=== PATIENT | male | born 1970 | race Caucasian/White ===

== ENCOUNTER → 2019-11-22 09:32 | Outpatient (CLI) | payer OTHER, SELFPAY ==
--- NOTE | 2019-11-22 | DI.US.S_ITS ---
PROCEDURE: US ABDOMEN COMPLETE INDICATIONS: ESSENTIAL (PRIMARY) HYPERTENSION, HYPERLIPIDEMIA TECHNIQUE: Real-time scanning was performed of the abdominal and retroperitoneal organs, with image documentation. COMPARISON: None. FINDINGS: Liver: Liver is normal in size and homogeneous in echotexture. Appropriate direction of flow in the portal vein. Gallbladder: The gallbladder is filled with echogenic and shadowing material, presumably stone close to the fundus. The wall is difficult to distinguish and may be slightly thickened measuring up to 4 mm. There is no sonographic Cheatham sign. Biliary ducts: Intrahepatic bile ducts are non-dilated. Extrahepatic bile duct caliber measures two mm. Normal is 6-7 mm or less in diameter, or 10 mm or less post-cholecystectomy. Pancreas: The pancreas was not well seen. Spleen: Spleen is normal in size and homogeneous in echotexture. Kidneys: Kidneys are normal in size and echotexture. Right kidney measures 12.3 cm long; left kidney measures 12.7 cm long. No nephrolithiasis. No solid masses. There is a large parapelvic cyst in the upper pole right kidney measuring 6.8 x 6.1 x 6.9 cm. Questionable left collecting system prominence. No hydroureter visible. Aorta: Visualized aorta is normal in caliber at less than 3 cm. Iliacs: Proximal common iliac arteries are normal in caliber at less than 2.5 cm. IVC: Intrahepatic inferior vena cava is patent. Miscellaneous: No free abdominal fluid. IMPRESSION: 1. Echogenic and shadowing material filled the gallbladder which appears distended with questionable wall thickening. There is likely cholelithiasis and sludge present. These may be findings of chronic cholecystitis. Nuclear medicine HIDA scan may be useful to determine gallbladder function. No clear indication of acute cholecystitis. 2. Questionable left intrarenal collecting system prominence. Correlate clinically and consider CT KUB if further imaging is needed. 3. Nonvisualization of the pancreas due to lack of good acoustic window. Dictated by: Sharon Carranza M.D. on 11/22/2019 at 14:52 Approved by: Sharon Carranza M.D. on 11/22/2019 at 14:57
== END ==
PROVIDERS: PCP Family Medicine; Referring Provider Family Medicine; Visit Provider Family Medicine
DX: N28.1 Cyst of kidney, acquired (principal); I10 Essential (primary) hypertension; E78.5 Hyperlipidemia, unspecified
CPT/HCPCS: 76700

== ENCOUNTER → 2021-02-11 09:02 | Outpatient (CLI) | payer OTHER, SELFPAY ==
[2021-02-11 19:20] LABS: Add Manual Diff / Slide Review NO; Basophils Absolute Auto 0 /uL (0-100); Basophils Percent Auto 0.7 % (0-2); Eosinophils Absolute Auto 100 /uL (0-450); Eosinophils Percent Auto 2.4 % (2-4); Hematocrit 43.2 % (41-53); Lymphocytes Absolute Auto 1200 /uL (1100-4500); Lymphocytes Percent Auto 22.5 % (25-40); Mean Corpuscular HGB Conc 34.7 % (30-36); Mean Corpuscular Volume 86.4 fL (80-100); Monocytes Absolute Auto 500 /uL (0-900); Monocytes Percent Auto 9.8 % (3-14); Neutrophils Absolute Auto 3500 /uL (1500-7000); Neutrophils Percent Auto 64.6 % (50-75); Platelet Count 239 X10^3/uL (150-400); Red Blood Cell Count 5.01 X10^6/uL (4.5-5.9); Red Cell Distribution Width 12.7 % (11.6-14.8); White Blood Cell Count 5.4 X10^3/uL (4.5-11.0)
[2021-02-11 19:23] LABS: Alanine Aminotransferase 28 IU/L (<50); Albumin 4.7 g/dL (3.5-5.0); Albumin Globulin Ratio 1.6 (1.0-2.8); Alkaline Phosphatase 54 U/L (38-126); Aspartate Aminotransferase 31 IU/L (17-59); BUN Creatinine Ratio 15.4 (6-22); Bilirubin Total 1.5 mg/dL (0.2-1.3); Blood Urea Nitrogen 16 mg/dL (9-20); Calcium 10.1 mg/dL (8.4-10.2); Carbon Dioxide 29 mmol/L (22-32); Chloride 102 mmol/L (98-107); Cholesterol 210 mg/dL (140-199); Estimated Glomerular Filt Rate > 60.0 mL/min (>60); Glucose 102 mg/dL (70-100); HDL Cholesterol 54 mg/dL (40-60); HEMOLYSIS 27 (0-50); LDL Cholesterol Calculated 120 mg/dL (<100); Potassium 4.1 mmol/L (3.4-5.1); Sodium 140 mmol/L (137-145); Total Protein 7.7 g/dL (6.3-8.2); Triglycerides 182 mg/dL (35-150)
== END ==
PROVIDERS: PCP Physician Assistant; Visit Provider Physician Assistant
DX: E78.00 Pure hypercholesterolemia, unspecified (principal); I10 Essential (primary) hypertension; Z12.11 Encounter for screening for malignant neoplasm of colon; Z79.899 Other long term (current) drug therapy
CPT/HCPCS: 80053; 80061; 85025

== ENCOUNTER → 2021-09-30 10:37 | Outpatient (CLI) | payer OTHER, SELFPAY ==
[2021-09-30 20:33] LABS: Alanine Aminotransferase 25 IU/L (<50); Albumin 4.6 g/dL (3.5-5.0); Albumin Globulin Ratio 1.6 (1.0-2.8); Alkaline Phosphatase 57 U/L (38-126); Aspartate Aminotransferase 29 IU/L (17-59); BUN Creatinine Ratio 17.7 (6-22); Bilirubin Total 2.1 mg/dL (0.2-1.3); Blood Urea Nitrogen 17 mg/dL (9-20); Calcium 9.5 mg/dL (8.4-10.2); Carbon Dioxide 29 mmol/L (22-32); Chloride 99 mmol/L (98-107); Cholesterol 179 mg/dL (140-199); Estimated Glomerular Filt Rate > 60 mL/min (>60); Globulin 2.9 g/dL (1.7-4.1); Glucose 99 mg/dL (70-100); HDL Cholesterol 58 mg/dL (40-60); HEMOLYSIS < 15 (0-50); LDL Cholesterol Calculated 95 mg/dL (<100); Potassium 3.9 mmol/L (3.4-5.1); Sodium 137 mmol/L (137-145); Total Protein 7.5 g/dL (6.3-8.2); Triglycerides 131 mg/dL (35-150)
== END ==
PROVIDERS: PCP Physician Assistant; Visit Provider Physician Assistant
DX: E78.00 Pure hypercholesterolemia, unspecified (principal); I10 Essential (primary) hypertension; Z79.899 Other long term (current) drug therapy
CPT/HCPCS: 80053; 80061

== ENCOUNTER → 2021-11-04 11:43 | Outpatient (CLI) | payer OTHER, SELFPAY ==
[2021-11-04 20:03] LABS: Bilirubin Direct 0.2 mg/dL (0.0-0.4); Bilirubin Total 1.8 mg/dL (0.2-1.3)
== END ==
PROVIDERS: PCP Physician Assistant; Visit Provider Physician Assistant
DX: E80.6 Other disorders of bilirubin metabolism (principal)
CPT/HCPCS: 82247; 82248

== ENCOUNTER → 2022-07-20 14:24 | Outpatient (CLI) | payer OTHER, SELFPAY ==
[2022-07-20 19:56] LABS: Alanine Aminotransferase 25 IU/L (<50); Albumin 4.4 g/dL (3.5-5.0); Albumin Globulin Ratio 1.5 (1.0-2.8); Alkaline Phosphatase 52 U/L (38-126); Aspartate Aminotransferase 25 IU/L (17-59); BUN Creatinine Ratio 15.7 (6-22); Bilirubin Total 1.4 mg/dL (0.2-1.3); Blood Urea Nitrogen 18 mg/dL (9-20); Calcium 9.9 mg/dL (8.4-10.2); Carbon Dioxide 33 mmol/L (22-32); Chloride 97 mmol/L (98-107); Estimated Glomerular Filt Rate > 60 mL/min (>60); Globulin 2.9 g/dL (1.7-4.1); Glucose 86 mg/dL (70-100); HEMOLYSIS < 15 (0-50); Potassium 3.7 mmol/L (3.4-5.1); Sodium 136 mmol/L (137-145); Total Protein 7.3 g/dL (6.3-8.2)
[2022-07-20 19:57] LABS: Add Manual Diff / Slide Review NO; Basophils Absolute Auto 0 /uL (0-100); Basophils Percent Auto 0.7 % (0-2); Eosinophils Absolute Auto 100 /uL (0-450); Eosinophils Percent Auto 1.7 % (2-4); Hematocrit 42.3 % (41-53); Hemoglobin 14.9 g/dL (13.5-17.5); Lymphocytes Absolute Auto 1400 /uL (1100-4500); Lymphocytes Percent Auto 29.1 % (25-40); Mean Corpuscular HGB Conc 35.3 % (30-36); Mean Corpuscular Hemoglobin 29.9 PG (26-34); Mean Corpuscular Volume 84.8 fL (80-100); Monocytes Absolute Auto 600 /uL (0-900); Monocytes Percent Auto 12.2 % (3-14); Neutrophils Absolute Auto 2800 /uL (1500-7000); Neutrophils Percent Auto 56.3 % (50-75); Platelet Count 262 X10^3/uL (150-400); Red Blood Cell Count 4.99 X10^6/uL (4.5-5.9); Red Cell Distribution Width 12.9 % (11.6-14.8); White Blood Cell Count 4.9 X10^3/uL (4.5-11.0)
[2022-07-20 20:45] LABS: Erythrocyte Sedimentation Rate 3 MM/HR (0-15)
== END ==
PROVIDERS: PCP Physician Assistant; Visit Provider Physician Assistant
DX: E78.00 Pure hypercholesterolemia, unspecified (principal); E80.6 Other disorders of bilirubin metabolism; I10 Essential (primary) hypertension; Z79.899 Other long term (current) drug therapy; R51.9 Headache, unspecified
CPT/HCPCS: 80053; 85025; 85651

== ENCOUNTER → 2022-07-27 09:39 | Outpatient (CLI) | payer OTHER, SELFPAY ==
[2022-07-27 20:29] LABS: C-Reactive Protein Quant 0.6 mg/dL (<1.0)
== END ==
PROVIDERS: PCP Physician Assistant; Visit Provider Physician Assistant
DX: R51.9 Headache, unspecified (principal)
CPT/HCPCS: 86140

== ENCOUNTER → 2022-07-31 12:33 | Outpatient (CLI) | payer OTHER, SELFPAY ==
--- NOTE | 2022-07-31 12:34 | DI.CT.S_ITS ---
PROCEDURE: CT HEAD/BRAIN WO CON INDICATIONS: left temporal pain; new headache; and right forehead mass TECHNIQUE: Noncontrast 4.5 mm thick angled axial sections acquired from the foramen magnum to the vertex, with coronal and sagittal reformats. For radiation dose reduction, the following was used: automated exposure control, adjustment of mA and/or kV according to patient size. COMPARISON: None. FINDINGS: Image quality: Excellent. CSF spaces: Basal cisterns are patent. No extra-axial fluid collections. Ventricles are normal in size and shape. Brain: No midline shift. No intracranial masses or hemorrhage. Dickerson-white matter interface is normal. Skull and face: Calvarium and visualized facial bones are intact, without suspicious lesions. Sinuses: Visualized sinuses and mastoids are clear. IMPRESSION: No acute intracranial abnormality. Dictated by: Darnell Garcia M.D. on 07/31/2022 at 12:10 Approved by: Darnell Garcia M.D. on 07/31/2022 at 12:11
--- NOTE | 2022-07-31 12:34 | DI.CT.S_ITS ---
PROCEDURE: CT FACIAL BONES WO CON INDICATIONS: left temporal pain and right foread mass TECHNIQUE: Noncontrast 2.5 mm thick axial images acquired from the mandible through the frontal sinuses, with coronal and sagittal reformatting. For radiation dose reduction, the following was used: automated exposure control, adjustment of mA and/or kV according to patient size. COMPARISON: None. FINDINGS: Image quality: Excellent. Bones and teeth: Orbital riley are intact. Sinus riley show no fracture or deformity. Nasal bones and septum are intact. Visualized portions of the mandible demonstrate no fractures or subluxation. Zygomatic arches are intact. Pterygoid plates are intact. Visualized portions of the skull base and auditory canals are intact. Sinuses: Paranasal sinuses are aerated, without fluid levels, mucosal thickening, or mucoceles. Mastoid air cells are aerated. Soft tissues: There is a well-circumscribed region of fat density at the anterior aspect of the right frontal bone measuring 15 mm. No edema nor fluid collections. No enlarged lymph nodes. No soft tissue lacerations or debris. Vascular: Visualized vascular structures appear normal in the absence of contrast. Bony vascular foramina and canals are intact. IMPRESSION: 1. Right frontal lipoma. 2. No acute fracture. No osseous lesion. If symptoms and/or clinical suspicion for pathology persist, further assessment with MRI or bone scan may be helpful for further assessment. Dictated by: Darnell Garcia M.D. on 07/31/2022 at 12:11 Approved by: Darnell Garcia M.D. on 07/31/2022 at 12:12
== END ==
PROVIDERS: PCP Physician Assistant; Referring Provider Physician Assistant; Visit Provider Physician Assistant
DX: R22.0 Localized swelling, mass and lump, head (principal); G44.52 New daily persistent headache (NDPH); D17.0 Benign lipomatous neoplasm of skin and subcutaneous tissue of head, face and neck
CPT/HCPCS: 70450; 70486

== ENCOUNTER → 2022-08-25 13:04 | Outpatient (CLI) | payer OTHER, SELFPAY ==
[2022-08-25 20:03] LABS: BUN Creatinine Ratio 17.4 (6-22); Blood Urea Nitrogen 19 mg/dL (9-20); C-Reactive Protein Quant < 0.5 mg/dL (<1.0); Calcium 9.7 mg/dL (8.4-10.2); Carbon Dioxide 33 mmol/L (22-32); Chloride 97 mmol/L (98-107); Estimated Glomerular Filt Rate > 60 mL/min (>60); Glucose 77 mg/dL (70-100); HEMOLYSIS < 15 (0-50); Potassium 3.8 mmol/L (3.4-5.1); Sodium 136 mmol/L (137-145)
[2022-08-25 21:20] LABS: Erythrocyte Sedimentation Rate 4 MM/HR (0-15)
== END ==
PROVIDERS: PCP Physician Assistant; Visit Provider Family Medicine
DX: Z01.812 Encounter for preprocedural laboratory examination (principal); R51.9 Headache, unspecified
CPT/HCPCS: 80048; 85651; 86140

== ENCOUNTER → 2022-08-29 12:33 | Outpatient (CLI) | payer OTHER, SELFPAY ==
--- NOTE | 2022-08-29 12:34 | DI.MRI.S_ITS ---
PROCEDURE: MR ANGIO HEAD WO CON INDICATIONS: left temporal artery pain and tenderness. sudden onset TECHNIQUE: Noncontrast axial 3-D [id number] MR angiogram, with 3-dimensional maximum intensity projection (MIP) reformats of the internal carotid arteries and posterior circulation then performed. COMPARISON: [facility], CT, CT HEAD/BRAIN WO CON, 07/31/2022, 12:39. FINDINGS: Image quality: This examination is limited by involuntary motion artifact. Anterior circulation: Intracranial internal carotid arteries demonstrate normal size and intraluminal flow signal. The flow within the paired anterior cerebral arteries is normal and symmetric. The flow within the middle cerebral arteries is normal and symmetric. The anterior communicating artery is seen. No stenoses, occlusions, or aneurysms. Posterior circulation: Visualized portions of the vertebral arteries demonstrate normal caliber, and join to form a normal appearing basilar artery. The flow within the posterior cerebral arteries is normal and symmetric. No stenoses, occlusions, or aneurysms. IMPRESSION: No significant intracranial arterial abnormality is seen. No aneurysm is seen. Dictated by: Javier Alford M.D. on 08/30/2022 at 14:24 Approved by: Javier Alford M.D. on 08/30/2022 at 14:25
== END ==
PROVIDERS: PCP Family Medicine; Referring Provider Family Medicine; Visit Provider Family Medicine
DX: R51.9 Headache, unspecified (principal)
CPT/HCPCS: 70544

== ENCOUNTER → 2023-08-22 09:22 | Outpatient (CLI) | payer OTHER, SELFPAY ==
[2023-08-22 19:35] LABS: Add Manual Diff / Slide Review NO; Basophils Absolute Auto 0 /uL (0-100); Basophils Percent Auto 0.7 % (0-2); Eosinophils Absolute Auto 100 /uL (0-450); Eosinophils Percent Auto 1.9 % (2-4); Hematocrit 42.8 % (41-53); Hemoglobin 14.9 g/dL (13.5-17.5); Lymphocytes Absolute Auto 1100 /uL (1100-4500); Lymphocytes Percent Auto 21.1 % (25-40); Mean Corpuscular HGB Conc 34.7 % (30-36); Mean Corpuscular Hemoglobin 29.4 PG (26-34); Mean Corpuscular Volume 84.7 fL (80-100); Monocytes Absolute Auto 600 /uL (0-900); Neutrophils Absolute Auto 3300 /uL (1500-7000); Neutrophils Percent Auto 65.3 % (50-75); Platelet Count 255 X10^3/uL (150-400); Red Blood Cell Count 5.05 X10^6/uL (4.5-5.9); White Blood Cell Count 5.1 X10^3/uL (4.5-11.0)
[2023-08-22 19:50] LABS: Alanine Aminotransferase 23 IU/L (<50); Albumin 4.5 g/dL (3.5-5.0); Albumin Globulin Ratio 1.6 (1.0-2.8); Alkaline Phosphatase 57 U/L (38-126); Aspartate Aminotransferase 61 IU/L (17-59); Bilirubin Total 1.5 mg/dL (0.2-1.3); Blood Urea Nitrogen 17 mg/dL (9-20); Calcium 9.9 mg/dL (8.4-10.2); Carbon Dioxide 33 mmol/L (22-32); Chloride 101 mmol/L (98-107); Cholesterol 159 mg/dL (140-199); Estimated Glomerular Filt Rate > 60 mL/min (>60); Globulin 2.8 g/dL (1.7-4.1); Glucose 87 mg/dL (70-100); HDL Cholesterol 61 mg/dL (40-60); HEMOLYSIS 40 (0-50); LDL Cholesterol Calculated 79 mg/dL (<100); Sodium 137 mmol/L (137-145); Total Protein 7.3 g/dL (6.3-8.2); Triglycerides 95 mg/dL (35-150)
== END ==
PROVIDERS: PCP Family Medicine; Visit Provider Family Medicine
DX: I10 Essential (primary) hypertension (principal); E78.00 Pure hypercholesterolemia, unspecified
CPT/HCPCS: 80053; 80061; 85025

== ENCOUNTER 2023-09-29 10:37 | Day surgery (SDC) | payer OTHER, SELFPAY ==
--- NOTE | 2023-09-29 | PATH_ITS ---
[facility] Accession Number: [id number] No. of containers..01 Tissue . 01 Material submitted: . colon - CECUM POLYP . 01 Diagnosis: CECUM POLYP: Tubular adenoma. [facility] 10/03/2023 145 Local . 01 Electronically signed: . Baljit Yun MD, Pathologist NPI- [id number] . 01 Gross description: . Received in formalin with two patient identifiers and cecum polyp, is a single new soft tissue fragment, 0.3 cm in greatest dimension. Submitted in A1. ([id number]) /MRV 10/03/20231457 Local . 01 Pathologist provided ICD-10: D12.0 . 01 CPT . 443287 Specimen Comment: A courtesy copy of this report has been sent to [phone] Performed at: [address] [id number] MD Baljit Yun MD Phone: [phone]
[2023-09-29 11:01] VITALS: BP 142/82; PULSE 89; RESP 16; TEMP 36.6; O2SAT 99
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
--- NOTE | 2023-09-29 12:35 | PM.OP.COLON ---
Operative Date/Time/Diagnoses Date of procedure: 09/29/23 Time of procedure: 12:35 Pre-op diagnosis: Colon cancer screening Post-op diagnosis: same Procedure & Clinicians Study performed: Colonoscopy Same procedure as scheduled: Yes Surgeon: Alejo Thomas Procedure Notes Procedure in detail: Surgeon: Alejo Thomas MD Anesthesia: Tara Trevino CRNA Procedure: The patient was brought to the endoscopy suite, placed in left lateral decubitus position. The patient was connected to monitoring devices. A time-out was performed. Sedation was administered. Once the patient was adequately sedated, a digital rectal exam was performed and was normal. The scope was then inserted and advanced to the cecum where the appendiceal orifice was identified and photographed. The scope was then slowly withdrawn over greater than 6 minutes. The mucosa was thoroughly inspected. No abnormalities were found. The scope was retroflexed in the rectum. No abnormalities were seen. The scope was straightened and removed. The patient was awakened and brought to recovery. Scope withdrawal time: 9 minutes Sedation time: 17 minutes EBL: 0 Findings: Normal colon Post-procedure Recommendations: Colonoscopy in 10 years Disposition: PACU
[2023-09-29 12:38] VITALS: BP 112/74; PULSE 80; RESP 15; TEMP 36.8; O2SAT 97
[2023-09-29 12:43] VITALS: BP 110/78; PULSE 80; RESP 13; TEMP 36.2; O2SAT 98
[2023-09-29 12:47] VITALS: BP 138/78; PULSE 73; RESP 17; O2SAT 97
[2023-09-29 12:50] VITALS: BP 117/82; PULSE 77; RESP 13; TEMP 36.2; O2SAT 98
== END 2023-09-29 13:02 | disposition home or self-care (01) ==
PROVIDERS: PCP Family Medicine; Referring Provider Surgery; Visit Provider Surgery
PROC: 0DJD8ZZ Inspection of Lower Intestinal Tract, Via Natural or Artificial Opening Endoscopic (ICD-10-PCS; CPT 45378; principal; 2023-09-29 11:30)
DX: Z12.11 Encounter for screening for malignant neoplasm of colon (principal); D12.0 Benign neoplasm of cecum
CPT/HCPCS: 45380; J2704

== ENCOUNTER → 2023-11-18 11:11 | Outpatient (CLI) | payer OTHER, SELFPAY ==
--- NOTE | 2023-11-18 11:11 | DI.US.S_ITS ---
PROCEDURE: US ABDOMEN COMPLETE INDICATIONS: abnormal GB in 2020, increased bili, and AST TECHNIQUE: Real-time scanning was performed of the abdominal and retroperitoneal organs, with image documentation. COMPARISON: [facility], , US ABDOMEN COMPLETE, 11/22/2019, 10:19. FINDINGS: Liver: Liver is enlarged measuring 18 cm with steatosis. Gallbladder: Gallstones are present. Wall thickness is normal. Biliary ducts: Intrahepatic bile ducts are non-dilated. Extrahepatic bile duct caliber measures 4.6 mm. Normal is 6-7 mm or less in diameter, or 10 mm or less post-cholecystectomy. Pancreas: Visualized portions of the pancreas are sonographically normal. Spleen: Spleen is normal in size and homogeneous in echotexture. Kidneys: Kidneys are normal in size and echotexture. Right kidney measures 13.4 cm long; left kidney measures 11.7 cm long. No hydronephrosis or nephrolithiasis. No solid masses. Bilateral simple cysts are present the largest is on the right measuring 7.5 cm slightly increased from 6.8 cm on prior exam. Aorta: Visualized aorta is normal in caliber at less than 3 cm. Iliacs: Proximal common iliac arteries are normal in caliber at less than 2.5 cm. IVC: Intrahepatic inferior vena cava is patent. Miscellaneous: No free abdominal fluid. IMPRESSION: Bilateral simple renal cysts. Cholelithiasis without wall thickening. Hepatomegaly with steatosis. Dictated by: Maria Esther Smallwood M.D. on 11/18/2023 at 13:40 Approved by: Maria Esther Smallwood M.D. on 11/18/2023 at 13:41
== END ==
PROVIDERS: PCP Family Medicine; Referring Provider Family Medicine; Visit Provider Family Medicine
DX: E80.6 Other disorders of bilirubin metabolism (principal); R74.01 Elevation of levels of liver transaminase levels; R93.2 Abnormal findings on diagnostic imaging of liver and biliary tract; Q61.02 Congenital multiple renal cysts; K80.20 Calculus of gallbladder without cholecystitis without obstruction; R16.0 Hepatomegaly, not elsewhere classified; K76.0 Fatty (change of) liver, not elsewhere classified
CPT/HCPCS: 76700

== ENCOUNTER → 2023-12-26 11:00 | Outpatient (CLI) | payer OTHER, SELFPAY ==
[2023-12-26 19:45] LABS: HEMOLYSIS < 15 (0-50); Iron 155 ug/dL (49-181)
[2023-12-26 19:46] LABS: Alanine Aminotransferase 23 IU/L (<50); Albumin 4.8 g/dL (3.5-5.0); Albumin Globulin Ratio 1.8 (1.0-2.8); Alkaline Phosphatase 52 U/L (38-126); Aspartate Aminotransferase 29 IU/L (17-59); Bilirubin Direct 0.2 mg/dL (0.0-0.4); Bilirubin Total 1.8 mg/dL (0.2-1.3); Bilirubin Unconjugated 1.5 mg/dL (0.0-1.1); Gamma Glutamyl Transpeptidase 20 U/L (15-73); Globulin 2.7 g/dL (1.7-4.1); HEMOLYSIS 16 (0-50); Total Protein 7.5 g/dL (6.3-8.2)
[2023-12-26 19:58] LABS: Percent Iron Saturation 55 % (20-50); Total Iron Binding Capacity 282 ug/dL (261-462); Transferrin 231 mg/dL (206-381)
[2023-12-26 20:20] LABS: Ferritin 383 ng/mL (18-464)
[2023-12-28 00:16] LABS: HBsAg Screen Negative (Negative); Hepatitis A Antibody IgM Negative (Negative); Hepatitis B Core Antibody IgM Negative (Negative); Hepatitis C Antibody Non Reactive (Non Reactive)
[2023-12-28 04:09] LABS: Ceruloplasmin 26.3 mg/dL (16.0-31.0)
[2023-12-28 20:36] LABS: Free Kappa Lt Chains, Serum 9.9 mg/L (3.3-19.4); Free Lambda Lt Chains,Serum 9.8 mg/L (5.7-26.3)
[2023-12-29 15:39] LABS: Albumin 4.3 g/dL (2.9-4.4); Alpha-1-Globulin 0.2 g/dL (0.0-0.4); Alpha-2-Globulin 0.7 g/dL (0.4-1.0); Gamma Globulin 1.1 g/dL (0.4-1.8); Globulin Total 3.1 g/dL (2.2-3.9); Protein, Total 7.4 g/dL (6.0-8.5)
[2023-12-30 10:12] LABS: ANA Screen, IFA Positive (.)
== END ==
PROVIDERS: PCP Family Medicine; Visit Provider Family Medicine
DX: E78.2 Mixed hyperlipidemia (principal); E88.89 Other specified metabolic disorders; R74.01 Elevation of levels of liver transaminase levels; E80.6 Other disorders of bilirubin metabolism; I10 Essential (primary) hypertension
CPT/HCPCS: 80074; 80076; 82248; 82390; 82728; 82977; 83540; 83550; 83883; 84155; 84165; 86038

== ENCOUNTER → 2024-01-10 11:30 | Outpatient (CLI) | payer OTHER, SELFPAY ==
[2024-01-10 19:35] LABS: HEMOLYSIS 16 (0-50); Iron 111 ug/dL (49-181)
[2024-01-10 19:42] LABS: C-Reactive Protein Quant < 0.5 mg/dL (<1.0)
[2024-01-10 19:48] LABS: Percent Iron Saturation 40 % (20-50); Total Iron Binding Capacity 281 ug/dL (261-462); Transferrin 245 mg/dL (206-381)
[2024-01-10 20:11] LABS: Ferritin 291 ng/mL (18-464)
[2024-01-10 20:36] LABS: Erythrocyte Sedimentation Rate 3 MM/HR (0-15)
[2024-01-13 16:08] LABS: Anti Mitochondrial ABY IGG <20.0 Units (0.0-20.0); Smooth Muscle Antibody 6 Units (0-19)
[2024-01-13 22:09] LABS: ANA Screen, IFA Positive (.)
== END ==
PROVIDERS: PCP Family Medicine; Visit Provider Family Medicine
DX: R76.8 Other specified abnormal immunological findings in serum (principal); R79.89 Other specified abnormal findings of blood chemistry; R79.0 Abnormal level of blood mineral; E88.89 Other specified metabolic disorders; R74.01 Elevation of levels of liver transaminase levels; E80.6 Other disorders of bilirubin metabolism; Z12.5 Encounter for screening for malignant neoplasm of prostate; E83.19 Other disorders of iron metabolism
CPT/HCPCS: 81256; 82728; 83516; 83540; 83550; 85651; 86015; 86038; 86140; 86376; G0103

== ENCOUNTER → 2024-03-19 13:37 | Outpatient (CLI) | payer OTHER, SELFPAY ==
[2024-03-19 19:30] LABS: Alanine Aminotransferase 34 IU/L (<50); Albumin 4.6 g/dL (3.5-5.0); Albumin Globulin Ratio 1.5 (1.0-2.8); Alkaline Phosphatase 55 U/L (38-126); Aspartate Aminotransferase 69 IU/L (17-59); BUN Creatinine Ratio 14.3 (6-22); Bilirubin Direct 0.3 mg/dL (0.0-0.4); Bilirubin Total 1.5 mg/dL (0.2-1.3); Blood Urea Nitrogen 15 mg/dL (9-20); Calcium 9.9 mg/dL (8.4-10.2); Carbon Dioxide 32 mmol/L (22-32); Chloride 98 mmol/L (98-107); Estimated Glomerular Filt Rate > 60 mL/min (>60); Globulin 3.1 g/dL (1.7-4.1); Glucose 90 mg/dL (70-100); HEMOLYSIS 33 (0-50); Potassium 3.6 mmol/L (3.4-5.1); Sodium 134 mmol/L (137-145); Total Protein 7.7 g/dL (6.3-8.2)
[2024-03-19 19:54] LABS: TSH w/ Reflex to FT4 2.12 uIU/mL (0.47-4.68)
== END ==
PROVIDERS: Physician Assistant; PCP Family Medicine
DX: R74.8 Abnormal levels of other serum enzymes (principal); R10.12 Left upper quadrant pain
CPT/HCPCS: 80053; 82248; 82784; 83516; 84443

== ENCOUNTER → 2024-06-25 13:03 | Outpatient (CLI) | payer OTHER, SELFPAY ==
[2024-06-25 18:53] LABS: Alanine Aminotransferase 28 IU/L (<50); Albumin 4.9 g/dL (3.5-5.0); Albumin Globulin Ratio 1.6 (1.0-2.8); Alkaline Phosphatase 56 U/L (38-126); Aspartate Aminotransferase 72 IU/L (17-59); BUN Creatinine Ratio 13.6 (6-22); Bilirubin Total 1.5 mg/dL (0.2-1.3); Blood Urea Nitrogen 15 mg/dL (9-20); Calcium 9.8 mg/dL (8.4-10.2); Carbon Dioxide 31 mmol/L (22-32); Chloride 95 mmol/L (98-107); Estimated Glomerular Filt Rate > 60 mL/min (>60); Glucose 87 mg/dL (70-100); HEMOLYSIS 31 (0-50); Potassium 3.7 mmol/L (3.4-5.1); Sodium 136 mmol/L (137-145); Total Protein 7.9 g/dL (6.3-8.2)
[2024-06-25 18:55] LABS: HEMOLYSIS 19 (0-50); Iron 98 ug/dL (49-181)
[2024-06-25 18:56] LABS: Add Manual Diff / Slide Review NO; Basophils Absolute Auto 0 /uL (0-100); Basophils Percent Auto 0.4 % (0-2); Eosinophils Absolute Auto 100 /uL (0-450); Eosinophils Percent Auto 1.1 % (2-4); Hematocrit 43.9 % (41-53); Hemoglobin 15.4 g/dL (13.5-17.5); Lymphocytes Absolute Auto 1100 /uL (1100-4500); Lymphocytes Percent Auto 20.6 % (25-40); Mean Corpuscular HGB Conc 35.1 % (30-36); Mean Corpuscular Hemoglobin 30.1 PG (26-34); Mean Corpuscular Volume 85.9 fL (80-100); Monocytes Absolute Auto 400 /uL (0-900); Monocytes Percent Auto 7.9 % (3-14); Neutrophils Absolute Auto 3900 /uL (1500-7000); Platelet Count 255 X10^3/uL (150-400); Red Cell Distribution Width 12.8 % (11.6-14.8); White Blood Cell Count 5.6 X10^3/uL (4.5-11.0)
[2024-06-25 19:06] LABS: Percent Iron Saturation 35 % (20-50); Total Iron Binding Capacity 279 ug/dL (261-462); Transferrin 239 mg/dL (206-381)
[2024-06-25 19:25] LABS: Ferritin 316 ng/mL (18-464)
== END ==
PROVIDERS: Internal Medicine; PCP Family Medicine
DX: R79.89 Other specified abnormal findings of blood chemistry (principal)
CPT/HCPCS: 80053; 82728; 83540; 83550; 85025

== ENCOUNTER 2024-07-11 07:43 | Outpatient (CLI) | payer OTHER, SELFPAY ==
[2024-07-11] VITALS (16 sets, daily range): BP systolic 108–147; BP diastolic 55–76; PULSE 43–71; RESP 12–20; TEMP 36.7; O2SAT 94–100
--- NOTE | 2024-07-11 | PATH_ITS ---
[facility] Accession Number: [id number] No. of containers..01 Tissue . 01 Material submitted: . liver - LEFT LIVER LOBE RANDOM . 01 Diagnosis: LIVER, LEFT LOBE, NEEDLE CORE BIOPSIES: Fibrous tissue. No liver parenchyma identified; please see comment. MRV 07/13/2024 1622 Local . 01 Comment: Sections are of fibrous tissue. The may represent sampling of the liver capsule or of subcutaneous tissue. The sampled material is insuffient for evaluation of hepatic disease. . As part of routine manager quality, Dr. Yun has reviewed this case and agrees with the interpretation above. . . 01 Electronically signed: . Brennen Ferguson MD, PhD, Pathologist NPI- [id number] . 01 Gross description: . LEFT LIVER LOBE RANDOM: Received in formalin are 3 fragment(s) of new, soft tissue measuring 0.1 x 0.1 x 0.1 cm to 0.6 x 0.1 x 0.1 cm submitted entirely in 1 cassette(s) /KADE 07/11/2024 2355 Local . 01 Pathologist provided ICD-10: R94.5 . 01 CPT . 249277 Specimen Comment: A courtesy copy of this report has been sent to [facility] Pathology Performed at: [address] [facility], [place], [place] [id number] MD Baljit Yun MD Phone: [phone]
--- NOTE | 2024-07-11 07:46 | DI.US.S_ITS ---
PROCEDURE: US BIOPSY LIVER Ultrasound-guided liver biopsy with sedation analgesia for 20 minutes. INDICATIONS: ELEVATED LIVER FUNCTION TESTS/ELEVATED ALEKSANDRA TECHNIQUE: The indications, alternatives, benefits, risks, and complications of the procedure were explained to the patient. Written informed consent was obtained and placed in the chart. Continuous EKG and hemodynamic monitoring was started by trained personnel. Real-time sonography was utilized to choose the site for percutaneous hepatic biopsy. The skin was prepped and draped in the usual sterile fashion. 1% lidocaine was infiltrated down to the hepatic capsule. A coaxial needle was then advanced into the liver under direct sonographic visualization. A biopsy apparatus was then utilized, and core biopsies were obtained. The needle was then withdrawn; a bandage and overlying weight were applied to the biopsy site. COMPARISON: None. FINDINGS: Biopsy site(s): Left hepatic lobe Needle: Veotag biopsy needle set. Number of passes: 3 Medications: 1% lidocaine for local anaesthesia. IV Versed and Fentanyl for conscious sedation for 20 minutes (see nursing record). Complications: None. IMPRESSION: Successful ultrasound-guided liver biopsy, with pathology results pending. Dictated by: Izaiah Saha M.D. on 07/11/2024 at 12:21 Approved by: Izaiah Saha M.D. on 07/11/2024 at 12:21
[2024-07-11 08:49] LABS: Hematocrit 43.7 % (41-53); Hemoglobin 15.4 g/dL (13.5-17.5); Mean Corpuscular HGB Conc 35.2 % (30-36); Mean Corpuscular Hemoglobin 30.1 PG (26-34); Mean Corpuscular Volume 85.5 fL (80-100); Platelet Count 247 X10^3/uL (150-400); Red Blood Cell Count 5.11 X10^6/uL (4.5-5.9); White Blood Cell Count 4.6 X10^3/uL (4.5-11.0)
[2024-07-11 09:06] LABS: INR 1.1 (0.9-1.3); Prothrombin Time 11.9 SECONDS (9.4-12.5)
[2024-07-11 09:16] LABS: PTT Partial Thromboplastin Tim 29 SECONDS (25.1-36.5)
[2024-07-11] MEDS: MIDAZOLAM 2 MG/2 ML VIAL 1 MG IV (09:31)
[2024-07-11] MEDS: fentaNYL 100 MCG/2 ML INJ 50 MCG IV ×2 (09:31→09:52)
[2024-07-11] MEDS: LIDOCAINE 1% 20 ML 10 ML INJ (09:31)
[2024-07-11 10:54] LABS: Hematocrit 40.7 % (41-53)
--- NOTE | 2024-07-11 12:05 | PC.NURSE ---
Dr. Saha notified at 1045 of patient's post-procedure hematocrit. Verbal order from Dr. Saha to repeat the hematocrit lab in one hour.
--- NOTE | 2024-07-11 12:28 | PC.NURSE ---
Dr. Saha notified of patient's [address] Saha gave verbal order to discharge patient.
== END 2024-07-11 12:14 | disposition home or self-care (01) ==
LOC: US 07:45
PROVIDERS: Radiology Diagnostic Radiology; PCP Family Medicine; Referring Provider Physician Assistant; Visit Provider Physician Assistant
DX: Z01.812 Encounter for preprocedural laboratory examination (principal); R79.89 Other specified abnormal findings of blood chemistry; R76.0 Raised antibody titer; R93.2 Abnormal findings on diagnostic imaging of liver and biliary tract; E88.89 Other specified metabolic disorders; R74.01 Elevation of levels of liver transaminase levels; R76.8 Other specified abnormal immunological findings in serum; R10.9 Unspecified abdominal pain
CPT/HCPCS: 47000; 76942; 85014; 85027; 85610; 85730; 99152; J2250; J3010

== ENCOUNTER → 2024-12-24 08:58 | Outpatient (CLI) | payer OTHER, SELFPAY ==
[2024-12-24 18:45] LABS: Add Manual Diff / Slide Review NO; Hematocrit 42.0 % (41-53); Hemoglobin 15.1 g/dL (13.5-17.5); Lymphocytes Absolute Auto 1100 /uL (1100-4500); Mean Corpuscular HGB Conc 36.0 % (30-36); Mean Corpuscular Hemoglobin 30.2 PG (26-34); Mean Corpuscular Volume 83.9 fL (80-100); Platelet Count 248 X10^3/uL (150-400)
[2024-12-24 18:55] LABS: Alanine Aminotransferase 26 IU/L (<50); Albumin 4.8 g/dL (3.5-5.0); Albumin Globulin Ratio 1.7 (1.0-2.8); Alkaline Phosphatase 48 U/L (38-126); Blood Urea Nitrogen 17 mg/dL (9-20); Calcium 10.3 mg/dL (8.4-10.2); Carbon Dioxide 29 mmol/L (22-32); Chloride 99 mmol/L (98-107); Cholesterol 164 mg/dL (140-199); Estimated Glomerular Filt Rate > 60 mL/min (>60); Globulin 2.8 g/dL (1.7-4.1); Glucose 86 mg/dL (70-99); HDL Cholesterol 80 mg/dL (40-60); HEMOLYSIS 18 (0-50); Potassium 4.2 mmol/L (3.4-5.1); Sodium 136 mmol/L (137-145); Total Protein 7.6 g/dL (6.3-8.2); Triglycerides 87 mg/dL (35-150)
[2024-12-24 19:40] LABS: Ferritin 310 ng/mL (18-464)
[2024-12-24 21:47] LABS: HEMOLYSIS < 15 (0-50); Iron 136 ug/dL (49-181)
[2024-12-24 22:02] LABS: Percent Iron Saturation 47 % (20-50); Total Iron Binding Capacity 289 ug/dL (261-462); Transferrin 250 mg/dL (206-381)
== END ==
PROVIDERS: Internal Medicine; PCP Family Medicine; Visit Provider Family Medicine
DX: Z12.5 Encounter for screening for malignant neoplasm of prostate (principal); R74.01 Elevation of levels of liver transaminase levels; I10 Essential (primary) hypertension; E78.2 Mixed hyperlipidemia; E83.110 Hereditary hemochromatosis; R79.89 Other specified abnormal findings of blood chemistry; R76.89 Other specified abnormal immunological findings in serum
CPT/HCPCS: 80053; 80061; 82728; 83540; 83550; 85025; 86038; G0103